=== PATIENT | male | born 1985 | race Caucasian/White ===

== ENCOUNTER 2018-10-26 17:48 | Inpatient (IN) | payer OTHER ==
[2018-10-26] MEDS: LORAZEPAM 2 MG INJ IV (19:31)
[2018-10-26 19:39] LABS: ADD MAN DIFF? NO
[2018-10-26 19:43] LABS: WHITE BLOOD COUNT 5.3 10^3/ul (4.8-10.8)
[2018-10-26 19:43] LABS: BASOPHILS % 0.6 % (0.0-2.0); EOSINOPHILS # 0.1 10^3/ul (0.0-0.5); EOSINOPHILS % 0.9 % (0.0-7.0); HEMATOCRIT 38.5 % (42.0-52.0); HEMOGLOBIN 12.9 g/dl (14.0-18.0); LYMPHOCYTES # 0.8 10^3/ul (0.8-2.9); LYMPHOCYTES % 15.4 % (15.0-51.0); MEAN CORPUSCULAR HEMOGLOBIN 32.4 pg (29.0-33.0); MEAN CORPUSCULAR HGB CONC 33.5 g/dl (32.0-37.0); MEAN CORPUSCULAR VOLUME 96.7 fl (82.0-101.0); MEAN PLATELET VOLUME 10.7 fl (7.4-10.4); MONOCYTE # 0.5 10^3/ul (0.3-0.9); MONOCYTES % 8.8 % (0.0-11.0); NEUTROPHILS % 73.9 % (39.0-77.0); PLATELET COUNT 148 10^3/UL (140-415); RED BLOOD COUNT 3.98 10^6/ul (4.70-6.10); RED CELL DISTRIBUTION WIDTH 12.1 % (11.5-14.5)
[2018-10-26] MEDS: SOD CHLORIDE 0.9% 1,000 ML IV (19:45)
[2018-10-26 20:05] LABS: ALANINE AMINOTRANSFERASE 107 IU/L (13-69); ALBUMIN 4.5 g/dl (3.3-4.9); ALBUMIN/GLOBULIN RATIO 1.55; ALKALINE PHOSPHATASE 69 IU/L (42-121); ANION GAP 14 (5-13); ASPARTATE AMINO TRANSFERASE 127 IU/L (15-46); BILIRUBIN,INDIRECT 1.6 mg/dl (0-1.1); BILIRUBIN,TOTAL 1.6 mg/dl (0.2-1.3); BLOOD UREA NITROGEN 10 mg/dl (7-20); CALCIUM 9.7 mg/dl (8.4-10.2); CARBON DIOXIDE 25 mmol/L (21-31); CHLORIDE 101 mmol/L (97-110); CREATININE 0.51 mg/dl (0.61-1.24); Estimated GFR > 60 mL/min (>60); GLUCOSE 94 mg/dl (70-220); LIPASE 405 U/L (23-300); SODIUM 140 mmol/L (135-144); TOTAL PROTEIN 7.4 g/dl (6.1-8.1)
[2018-10-26] MEDS: MULTIVITAMINS 10 ML, THIAMINE 100 MG, FOLIC ACID 1 MG, MAGNESIUM SULFATE 2 GM in SOD CH... IV (21:21)
[2018-10-27] MEDS ORDERED: NACL 0.9% 3 ML SYG IV
[2018-10-27] MEDS ORDERED: ONDANSETRON 4 MG INJ IV
[2018-10-27] MEDS: LORAZEPAM 2 MG INJ IV ×6 (00:46→19:46)
[2018-10-27] MEDS: SOD CHLORIDE 0.9% 1,000 ML IV ×3 (00:46→22:29)
[2018-10-27] MEDS: CHLORDIAZEPOXIDE 25 MG CAP PO ×4 (00:46→21:28)
[2018-10-27] MEDS: ACETAMINOPHEN 325 MG TAB PO ×2 (02:48→10:01)
[2018-10-27 08:04] LABS: ADD MAN DIFF? NO
[2018-10-27 08:11] LABS: BASOPHILS % 0.3 % (0.0-2.0); EOSINOPHILS # 0.1 10^3/ul (0.0-0.5); EOSINOPHILS % 1.4 % (0.0-7.0); HEMATOCRIT 39.5 % (42.0-52.0); HEMOGLOBIN 13.1 g/dl (14.0-18.0); LYMPHOCYTES # 1.2 10^3/ul (0.8-2.9); LYMPHOCYTES % 20.1 % (15.0-51.0); MEAN CORPUSCULAR HEMOGLOBIN 32.8 pg (29.0-33.0); MEAN CORPUSCULAR HGB CONC 33.2 g/dl (32.0-37.0); MEAN CORPUSCULAR VOLUME 98.8 fl (82.0-101.0); MEAN PLATELET VOLUME 11.3 fl (7.4-10.4); MONOCYTE # 0.6 10^3/ul (0.3-0.9); MONOCYTES % 9.6 % (0.0-11.0); NEUTROPHIL # 3.9 10^3/ul (1.6-7.5); NEUTROPHILS % 68.3 % (39.0-77.0); PLATELET COUNT 151 10^3/UL (140-415)
[2018-10-27 08:11] LABS: WHITE BLOOD COUNT 5.7 10^3/ul (4.8-10.8)
[2018-10-27 08:33] LABS: ALANINE AMINOTRANSFERASE 98 IU/L (13-69); ALBUMIN 4.4 g/dl (3.3-4.9); ALBUMIN/GLOBULIN RATIO 1.51; ALKALINE PHOSPHATASE 71 IU/L (42-121); ANION GAP 10 (5-13); ASPARTATE AMINO TRANSFERASE 115 IU/L (15-46); BILIRUBIN,INDIRECT 1.2 mg/dl (0-1.1); BILIRUBIN,TOTAL 1.2 mg/dl (0.2-1.3); BLOOD UREA NITROGEN 8 mg/dl (7-20); CALCIUM 9.3 mg/dl (8.4-10.2); CARBON DIOXIDE 26 mmol/L (21-31); CHLORIDE 104 mmol/L (97-110); CREATININE 0.52 mg/dl (0.61-1.24); Estimated GFR > 60 mL/min (>60); GLUCOSE 96 mg/dl (70-220); MAGNESIUM 2.2 mg/dl (1.7-2.5); POTASSIUM 3.9 mmol/L (3.5-5.1); SODIUM 140 mmol/L (135-144); TOTAL PROTEIN 7.3 g/dl (6.1-8.1)
[2018-10-27 08:37] LABS: ETHANOL < 10.0 mg/dl (0-0)
[2018-10-27] MEDS: MULTIVITAMINS THERAPEUTIC TAB PO (08:56)
[2018-10-27] MEDS: FOLIC ACID 1 MG TAB PO (08:56)
[2018-10-27] MEDS: THIAMINE 100 MG TAB PO (08:56)
[2018-10-27] MEDS: NIFEdipine (XL) 60 MG TAB PO (16:46)
[2018-10-27] MEDS: LORAZEPAM 1 MG TAB PO ×2 (16:46→21:28)
[2018-10-27] MEDS: NICOTINE (14 MG/24 HR) PATCH TRANSDERM (18:09)
[2018-10-27] MEDS: SERTRALINE 100 MG TAB PO (21:27)
[2018-10-27] MEDS: FAMOTIDINE 20 MG TAB PO (21:28)
[2018-10-28] MEDS: ACETAMINOPHEN 325 MG TAB PO (00:09)
[2018-10-28] MEDS: LORAZEPAM 2 MG INJ IV ×6 (00:59→10:38)
[2018-10-28] MEDS: DIPHENHYDRAMINE 50 MG INJ IV (03:04)
[2018-10-28] MEDS: HALOPERIDOL 5 MG INJ IM (03:04)
[2018-10-28] MEDS: SOD CHLORIDE 0.9% 1,000 ML IV ×4 (05:51→23:11)
[2018-10-28 06:28] LABS: ADD MAN DIFF? NO; HAAIG REFLEX REFLEX FILED
[2018-10-28 06:31] LABS: BASOPHILS % 0.4 % (0.0-2.0); EOSINOPHILS # 0.1 10^3/ul (0.0-0.5); EOSINOPHILS % 1.2 % (0.0-7.0); HEMATOCRIT 37.9 % (42.0-52.0); HEMOGLOBIN 12.7 g/dl (14.0-18.0); LYMPHOCYTES # 1.2 10^3/ul (0.8-2.9); LYMPHOCYTES % 24.3 % (15.0-51.0); MEAN CORPUSCULAR HEMOGLOBIN 32.4 pg (29.0-33.0); MEAN CORPUSCULAR HGB CONC 33.5 g/dl (32.0-37.0); MEAN CORPUSCULAR VOLUME 96.7 fl (82.0-101.0); MONOCYTE # 0.5 10^3/ul (0.3-0.9); MONOCYTES % 9.5 % (0.0-11.0); NEUTROPHIL # 3.2 10^3/ul (1.6-7.5); NEUTROPHILS % 64.4 % (39.0-77.0); PLATELET COUNT 160 10^3/UL (140-415); RED BLOOD COUNT 3.92 10^6/ul (4.70-6.10); RED CELL DISTRIBUTION WIDTH 11.9 % (11.5-14.5)
[2018-10-28] MEDS: LORAZEPAM 1 MG TAB PO (06:49)
[2018-10-28 06:50] LABS: PROTIME 12.2 Sec (11.9-14.9)
[2018-10-28 06:53] LABS: MAGNESIUM 1.9 mg/dl (1.7-2.5)
[2018-10-28 07:26] LABS: HEPATITIS B SURFACE ANTIGEN NEGATIVE (NEGATIVE)
[2018-10-28 07:46] LABS: HEPATITIS B CORE ANTIBODY NEGATIVE (NEGATIVE); HEPATITIS C VIRAL ANTIBODY NEGATIVE (NEGATIVE)
[2018-10-28 07:52] LABS: HEMOGLOBIN A1C 4.7 % (0-5.9)
[2018-10-28] MEDS: FAMOTIDINE 20 MG TAB PO (08:27)
[2018-10-28] MEDS: THIAMINE 100 MG TAB PO (08:27)
[2018-10-28] MEDS: MULTIVITAMINS THERAPEUTIC TAB PO (08:27)
[2018-10-28] MEDS: FOLIC ACID 1 MG TAB PO (08:27)
[2018-10-28] MEDS: NIFEdipine (XL) 60 MG TAB PO (08:28)
[2018-10-28] MEDS: NICOTINE (14 MG/24 HR) PATCH TRANSDERM (08:29)
[2018-10-28] MEDS: CHLORDIAZEPOXIDE 25 MG CAP PO ×3 (08:33→20:21)
[2018-10-28] MEDS: ENOXAPARIN 40 MG/0.4 ML SYG SC (08:37)
[2018-10-28] MEDS ORDERED: THIAMINE 100 MG TAB PO (09:00)
[2018-10-28 10:08] LABS: AMPHETAMINE/METHAMPHETAMINE Negative (NEGATIVE); CANNABINOIDS Negative (NEGATIVE); COCAINE Negative (NEGATIVE); OPIATES Negative (NEGATIVE)
[2018-10-28 10:17] LABS: BARBITURATES Positive (NEGATIVE)
[2018-10-28 10:18] LABS: BENZODIAZEPINES Positive (NEGATIVE)
[2018-10-28] MEDS: LORAZEPAM (MDV) 100 MG in DEXTROSE 5% 50 ML IV (11:04)
[2018-10-28] MEDS: CLONIDINE 0.2 MG/24 HR PATCH TRANSDERM (14:00)
[2018-10-28] MEDS ORDERED: HALOPERIDOL 5 MG INJ IM (14:00)
[2018-10-28] MEDS: HALOPERIDOL 5 MG INJ IV (14:00)
[2018-10-28] MEDS: DEXMEDETOMIDINE HCL 200 MCG in SOD CHLORIDE 0.9% 48 ML IV ×2 (14:53→19:33)
[2018-10-28] MEDS: SERTRALINE 100 MG TAB PO (20:21)
[2018-10-29] MEDS: DEXMEDETOMIDINE HCL 200 MCG in SOD CHLORIDE 0.9% 48 ML IV ×3 (02:53→18:51)
[2018-10-29 05:21] LABS: ADD MAN DIFF? NO
[2018-10-29 05:24] LABS: BASOPHILS % 0.7 % (0.0-2.0); EOSINOPHILS # 0.1 10^3/ul (0.0-0.5); EOSINOPHILS % 1.8 % (0.0-7.0); HEMATOCRIT 36.5 % (42.0-52.0); HEMOGLOBIN 12.1 g/dl (14.0-18.0); LYMPHOCYTES # 1.4 10^3/ul (0.8-2.9); MEAN CORPUSCULAR HEMOGLOBIN 32.8 pg (29.0-33.0); MEAN CORPUSCULAR HGB CONC 33.2 g/dl (32.0-37.0); MEAN CORPUSCULAR VOLUME 98.9 fl (82.0-101.0); MEAN PLATELET VOLUME 11.5 fl (7.4-10.4); MONOCYTE # 0.5 10^3/ul (0.3-0.9); MONOCYTES % 10.3 % (0.0-11.0); NEUTROPHIL # 2.4 10^3/ul (1.6-7.5); NEUTROPHILS % 55.5 % (39.0-77.0); PLATELET COUNT 151 10^3/UL (140-415); RED BLOOD COUNT 3.69 10^6/ul (4.70-6.10); RED CELL DISTRIBUTION WIDTH 12.1 % (11.5-14.5)
[2018-10-29 05:24] LABS: WHITE BLOOD COUNT 4.4 10^3/ul (4.8-10.8)
[2018-10-29 05:57] LABS: ALANINE AMINOTRANSFERASE 84 IU/L (13-69); ALBUMIN 3.9 g/dl (3.3-4.9); ALBUMIN/GLOBULIN RATIO 1.44; ALKALINE PHOSPHATASE 58 IU/L (42-121); ANION GAP 9 (5-13); ASPARTATE AMINO TRANSFERASE 82 IU/L (15-46); BILIRUBIN,INDIRECT 0.8 mg/dl (0-1.1); BILIRUBIN,TOTAL 0.8 mg/dl (0.2-1.3); BLOOD UREA NITROGEN 10 mg/dl (7-20); CALCIUM 9.2 mg/dl (8.4-10.2); CARBON DIOXIDE 21 mmol/L (21-31); CHLORIDE 111 mmol/L (97-110); CREATININE 0.55 mg/dl (0.61-1.24); Estimated GFR > 60 mL/min (>60); GLUCOSE 103 mg/dl (70-220); MAGNESIUM 1.9 mg/dl (1.7-2.5); SODIUM 141 mmol/L (135-144); TOTAL PROTEIN 6.6 g/dl (6.1-8.1)
[2018-10-29] MEDS: FAMOTIDINE 20 MG INJ IV (08:08)
[2018-10-29] MEDS: CHLORDIAZEPOXIDE 25 MG CAP PO ×3 (08:08→20:36)
[2018-10-29] MEDS: NIFEdipine (XL) 60 MG TAB PO (08:08)
[2018-10-29] MEDS: THIAMINE 100 MG TAB PO (08:09)
[2018-10-29] MEDS: MULTIVITAMINS THERAPEUTIC TAB PO (08:09)
[2018-10-29] MEDS: ENOXAPARIN 40 MG/0.4 ML SYG SC (08:16)
[2018-10-29] MEDS: SOD CHLORIDE 0.9% 1,000 ML IV ×2 (08:27→18:08)
[2018-10-29] MEDS: NICOTINE (14 MG/24 HR) PATCH TRANSDERM (08:28)
[2018-10-29] MEDS: SERTRALINE 100 MG TAB PO (20:35)
[2018-10-30] MEDS: DEXMEDETOMIDINE HCL 200 MCG in SOD CHLORIDE 0.9% 48 ML IV (01:28)
[2018-10-30] MEDS: SOD CHLORIDE 0.9% 1,000 ML IV ×2 (03:17→13:41)
[2018-10-30] MEDS: LORAZEPAM 1 MG TAB PO ×3 (05:16→21:15)
[2018-10-30 06:37] LABS: ADD MAN DIFF? NO
[2018-10-30 06:44] LABS: BASOPHILS % 0.4 % (0.0-2.0); EOSINOPHILS # 0.1 10^3/ul (0.0-0.5); EOSINOPHILS % 1.2 % (0.0-7.0); HEMATOCRIT 37.6 % (42.0-52.0); HEMOGLOBIN 12.6 g/dl (14.0-18.0); LYMPHOCYTES # 1.4 10^3/ul (0.8-2.9); LYMPHOCYTES % 27.8 % (15.0-51.0); MEAN CORPUSCULAR HEMOGLOBIN 32.6 pg (29.0-33.0); MEAN CORPUSCULAR HGB CONC 33.5 g/dl (32.0-37.0); MEAN CORPUSCULAR VOLUME 97.2 fl (82.0-101.0); MEAN PLATELET VOLUME 10.9 fl (7.4-10.4); MONOCYTE # 0.5 10^3/ul (0.3-0.9); MONOCYTES % 10.1 % (0.0-11.0); NEUTROPHIL # 3.1 10^3/ul (1.6-7.5); NEUTROPHILS % 60.1 % (39.0-77.0); PLATELET COUNT 160 10^3/UL (140-415); RED BLOOD COUNT 3.87 10^6/ul (4.70-6.10); RED CELL DISTRIBUTION WIDTH 11.8 % (11.5-14.5)
[2018-10-30 06:44] LABS: WHITE BLOOD COUNT 5.1 10^3/ul (4.8-10.8)
[2018-10-30 07:11] LABS: AMMONIA 13 umol/l (9-30)
[2018-10-30 07:30] LABS: ALANINE AMINOTRANSFERASE 78 IU/L (13-69); ALBUMIN 3.9 g/dl (3.3-4.9); ALKALINE PHOSPHATASE 61 IU/L (42-121); ANION GAP 12 (5-13); ASPARTATE AMINO TRANSFERASE 67 IU/L (15-46); BILIRUBIN,INDIRECT 0.8 mg/dl (0-1.1); BILIRUBIN,TOTAL 0.8 mg/dl (0.2-1.3); BLOOD UREA NITROGEN 7 mg/dl (7-20); CALCIUM 9.2 mg/dl (8.4-10.2); CARBON DIOXIDE 22 mmol/L (21-31); CHLORIDE 109 mmol/L (97-110); CREATININE 0.55 mg/dl (0.61-1.24); Estimated GFR > 60 mL/min (>60); GLUCOSE 95 mg/dl (70-220); MAGNESIUM 1.8 mg/dl (1.7-2.5); POTASSIUM 3.5 mmol/L (3.5-5.1); SODIUM 143 mmol/L (135-144); TOTAL PROTEIN 6.5 g/dl (6.1-8.1)
[2018-10-30] MEDS: MULTIVITAMINS THERAPEUTIC TAB PO (08:24)
[2018-10-30] MEDS: NIFEdipine (XL) 60 MG TAB PO (08:24)
[2018-10-30] MEDS: CHLORDIAZEPOXIDE 25 MG CAP PO ×3 (08:24→21:15)
[2018-10-30] MEDS: FAMOTIDINE 20 MG TAB PO (08:24)
[2018-10-30] MEDS: THIAMINE 100 MG TAB PO (08:24)
[2018-10-30] MEDS: NICOTINE (14 MG/24 HR) PATCH TRANSDERM (08:25)
[2018-10-30] MEDS: ENOXAPARIN 40 MG/0.4 ML SYG SC (08:32)
[2018-10-30] MEDS: ACETAMINOPHEN 325 MG TAB PO ×2 (12:36→17:52)
[2018-10-30] MEDS: LORAZEPAM 4 MG/ML VIAL IV (15:07)
[2018-10-30] MEDS ORDERED: ONDANSETRON 4 MG INJ IV (16:30)
[2018-10-30] MEDS: POTASSIUM CHLORIDE 20 MEQ POWDER FOR ORAL SOLN PO (17:21)
[2018-10-30] MEDS: SERTRALINE 100 MG TAB PO (21:15)
[2018-10-30] MEDS: MAGNESIUM OXIDE 400 MG TAB PO (21:15)
[2018-10-31] MEDS: ACETAMINOPHEN 325 MG TAB PO (00:17)
[2018-10-31] MEDS: LORAZEPAM 4 MG/ML VIAL IV ×5 (00:17→23:27)
[2018-10-31] MEDS: SOD CHLORIDE 0.9% 1,000 ML IV ×4 (00:19→21:41)
[2018-10-31] MEDS: LORAZEPAM 1 MG TAB PO ×2 (06:00→13:10)
[2018-10-31 06:10] LABS: ADD MAN DIFF? NO
[2018-10-31 06:27] LABS: WHITE BLOOD COUNT 5.5 10^3/ul (4.8-10.8)
[2018-10-31 06:27] LABS: BASOPHILS % 0.4 % (0.0-2.0); EOSINOPHILS # 0.1 10^3/ul (0.0-0.5); EOSINOPHILS % 1.1 % (0.0-7.0); HEMATOCRIT 38.6 % (42.0-52.0); HEMOGLOBIN 12.9 g/dl (14.0-18.0); LYMPHOCYTES # 1.5 10^3/ul (0.8-2.9); MEAN CORPUSCULAR HEMOGLOBIN 32.5 pg (29.0-33.0); MEAN CORPUSCULAR HGB CONC 33.4 g/dl (32.0-37.0); MEAN CORPUSCULAR VOLUME 97.2 fl (82.0-101.0); MEAN PLATELET VOLUME 11.2 fl (7.4-10.4); MONOCYTE # 0.7 10^3/ul (0.3-0.9); NEUTROPHIL # 3.2 10^3/ul (1.6-7.5); NEUTROPHILS % 59.1 % (39.0-77.0); PLATELET COUNT 195 10^3/UL (140-415); RED BLOOD COUNT 3.97 10^6/ul (4.70-6.10)
[2018-10-31 06:51] LABS: ALANINE AMINOTRANSFERASE 74 IU/L (13-69); ALBUMIN 4.3 g/dl (3.3-4.9); ALBUMIN/GLOBULIN RATIO 1.65; ALKALINE PHOSPHATASE 62 IU/L (42-121); ANION GAP 13 (5-13); ASPARTATE AMINO TRANSFERASE 49 IU/L (15-46); BILIRUBIN,INDIRECT 0.4 mg/dl (0-1.1); BILIRUBIN,TOTAL 0.4 mg/dl (0.2-1.3); BLOOD UREA NITROGEN 8 mg/dl (7-20); CALCIUM 9.5 mg/dl (8.4-10.2); CARBON DIOXIDE 26 mmol/L (21-31); CHLORIDE 106 mmol/L (97-110); CREATININE 0.54 mg/dl (0.61-1.24); Estimated GFR > 60 mL/min (>60); GLUCOSE 97 mg/dl (70-220); MAGNESIUM 2.1 mg/dl (1.7-2.5); POTASSIUM 3.7 mmol/L (3.5-5.1); SODIUM 145 mmol/L (135-144); TOTAL PROTEIN 6.9 g/dl (6.1-8.1)
[2018-10-31] MEDS: CHLORDIAZEPOXIDE 25 MG CAP PO ×3 (07:31→20:02)
[2018-10-31] MEDS: MAGNESIUM OXIDE 400 MG TAB PO ×2 (08:29→20:02)
[2018-10-31] MEDS: THIAMINE 100 MG TAB PO (08:30)
[2018-10-31] MEDS: NIFEdipine (XL) 60 MG TAB PO (08:31)
[2018-10-31] MEDS: MULTIVITAMINS THERAPEUTIC TAB PO (08:31)
[2018-10-31] MEDS: FAMOTIDINE 20 MG TAB PO (08:32)
[2018-10-31] MEDS: NICOTINE (14 MG/24 HR) PATCH TRANSDERM (08:32)
[2018-10-31] MEDS: POTASSIUM CHLORIDE 20 MEQ POWDER FOR ORAL SOLN PO (08:32)
[2018-10-31] MEDS: ENOXAPARIN 40 MG/0.4 ML SYG SC (08:43)
[2018-10-31] MEDS: HALOPERIDOL 5 MG INJ IM (11:24)
[2018-10-31] MEDS: SERTRALINE 100 MG TAB PO (20:02)
[2018-11-01] MEDS: LORAZEPAM 4 MG/ML VIAL IV (04:24)
[2018-11-01 06:05] LABS: ANION GAP 10 (5-13); BLOOD UREA NITROGEN 6 mg/dl (7-20); CALCIUM 9.1 mg/dl (8.4-10.2); CARBON DIOXIDE 23 mmol/L (21-31); CHLORIDE 109 mmol/L (97-110); CREATININE 0.47 mg/dl (0.61-1.24); Estimated GFR > 60 mL/min (>60); GLUCOSE 108 mg/dl (70-220); POTASSIUM 3.6 mmol/L (3.5-5.1); SODIUM 142 mmol/L (135-144)
[2018-11-01] MEDS: SOD CHLORIDE 0.9% 1,000 ML IV ×2 (07:01→20:07)
[2018-11-01 07:57] LABS: ADD MAN DIFF? NO
[2018-11-01 08:12] LABS: WHITE BLOOD COUNT 5.2 10^3/ul (4.8-10.8)
[2018-11-01 08:12] LABS: BASOPHILS % 0.4 % (0.0-2.0); EOSINOPHILS % 0.8 % (0.0-7.0); HEMATOCRIT 37.4 % (42.0-52.0); HEMOGLOBIN 12.5 g/dl (14.0-18.0); LYMPHOCYTES # 1.2 10^3/ul (0.8-2.9); LYMPHOCYTES % 23.4 % (15.0-51.0); MEAN CORPUSCULAR HEMOGLOBIN 32.8 pg (29.0-33.0); MEAN CORPUSCULAR HGB CONC 33.4 g/dl (32.0-37.0); MEAN CORPUSCULAR VOLUME 98.2 fl (82.0-101.0); MEAN PLATELET VOLUME 11.2 fl (7.4-10.4); MONOCYTE # 0.7 10^3/ul (0.3-0.9); MONOCYTES % 12.5 % (0.0-11.0); NEUTROPHIL # 3.2 10^3/ul (1.6-7.5); NEUTROPHILS % 62.5 % (39.0-77.0); PLATELET COUNT 194 10^3/UL (140-415); RED BLOOD COUNT 3.81 10^6/ul (4.70-6.10); RED CELL DISTRIBUTION WIDTH 12.1 % (11.5-14.5)
[2018-11-01] MEDS: CHLORDIAZEPOXIDE 25 MG CAP PO (08:22)
[2018-11-01] MEDS: NIFEdipine (XL) 60 MG TAB PO (08:23)
[2018-11-01] MEDS: POTASSIUM CHLORIDE 20 MEQ POWDER FOR ORAL SOLN PO (08:23)
[2018-11-01] MEDS: MAGNESIUM OXIDE 400 MG TAB PO ×2 (08:23→20:08)
[2018-11-01] MEDS: NICOTINE (14 MG/24 HR) PATCH TRANSDERM (08:23)
[2018-11-01] MEDS: THIAMINE 100 MG TAB PO (08:24)
[2018-11-01] MEDS: FAMOTIDINE 20 MG TAB PO (08:24)
[2018-11-01] MEDS: MULTIVITAMINS THERAPEUTIC TAB PO (08:24)
[2018-11-01] MEDS: ENOXAPARIN 40 MG/0.4 ML SYG SC (08:25)
[2018-11-01] MEDS: CHLORDIAZEPOXIDE 5 MG CAP PO ×2 (12:41→20:08)
[2018-11-01] MEDS: HALOPERIDOL 5 MG INJ IM (14:11)
[2018-11-01] MEDS: SERTRALINE 100 MG TAB PO (20:08)
[2018-11-02] MEDS: LORAZEPAM 4 MG/ML VIAL IV (01:45)
[2018-11-02] MEDS: SOD CHLORIDE 0.9% 1,000 ML IV (05:40)
[2018-11-02 06:54] LABS: ADD MAN DIFF? NO
[2018-11-02 06:57] LABS: BASOPHILS % 0.7 % (0.0-2.0); EOSINOPHILS # 0.1 10^3/ul (0.0-0.5); EOSINOPHILS % 1.3 % (0.0-7.0); HEMATOCRIT 40.2 % (42.0-52.0); HEMOGLOBIN 13.1 g/dl (14.0-18.0); LYMPHOCYTES # 1.4 10^3/ul (0.8-2.9); LYMPHOCYTES % 31.9 % (15.0-51.0); MEAN CORPUSCULAR HEMOGLOBIN 32.2 pg (29.0-33.0); MEAN CORPUSCULAR HGB CONC 32.6 g/dl (32.0-37.0); MEAN CORPUSCULAR VOLUME 98.8 fl (82.0-101.0); MEAN PLATELET VOLUME 10.9 fl (7.4-10.4); MONOCYTE # 0.6 10^3/ul (0.3-0.9); MONOCYTES % 12.9 % (0.0-11.0); NEUTROPHIL # 2.4 10^3/ul (1.6-7.5); NEUTROPHILS % 52.8 % (39.0-77.0); PLATELET COUNT 215 10^3/UL (140-415); RED BLOOD COUNT 4.07 10^6/ul (4.70-6.10); RED CELL DISTRIBUTION WIDTH 12.3 % (11.5-14.5)
[2018-11-02 06:57] LABS: WHITE BLOOD COUNT 4.5 10^3/ul (4.8-10.8)
[2018-11-02 07:14] LABS: ANION GAP 10 (5-13); BLOOD UREA NITROGEN 8 mg/dl (7-20); CALCIUM 9.2 mg/dl (8.4-10.2); CARBON DIOXIDE 26 mmol/L (21-31); CHLORIDE 106 mmol/L (97-110); CREATININE 0.55 mg/dl (0.61-1.24); Estimated GFR > 60 mL/min (>60); GLUCOSE 103 mg/dl (70-220); SODIUM 142 mmol/L (135-144)
[2018-11-02 07:25] LABS: PHOSPHORUS 4.7 mg/dl (2.5-4.9)
[2018-11-02 07:28] LABS: MAGNESIUM 2.2 mg/dl (1.7-2.5)
[2018-11-02] MEDS: [UNRECOGNIZED DRUG - OTHER] SC (09:00)
[2018-11-02] MEDS: POTASSIUM CHLORIDE 20 MEQ POWDER FOR ORAL SOLN PO (09:47)
[2018-11-02] MEDS: CHLORDIAZEPOXIDE 5 MG CAP PO (09:47)
[2018-11-02] MEDS: FAMOTIDINE 20 MG TAB PO (09:49)
[2018-11-02] MEDS: NIFEdipine (XL) 60 MG TAB PO (09:49)
[2018-11-02] MEDS: THIAMINE 100 MG TAB PO (09:49)
[2018-11-02] MEDS: ENOXAPARIN 40 MG/0.4 ML SYG SC (09:50)
[2018-11-02] MEDS: MULTIVITAMINS THERAPEUTIC TAB PO (09:50)
[2018-11-02] MEDS: MAGNESIUM OXIDE 400 MG TAB PO (10:52)
[2018-11-02] MEDS: NICOTINE (14 MG/24 HR) PATCH TRANSDERM (10:53)
== END 2018-11-02 10:54 | disposition left against medical advice (07) | DRG 894 ==
LOC: 6WM 10-30 15:03 → 5EC 11-02 00:30 → E/R 17:48 → ICU 10-28 09:21 → TEL 10-27 18:47
DX: F10.231 Alcohol dependence with withdrawal delirium (principal); F17.203 Nicotine dependence unspecified, with withdrawal; I10 Essential (primary) hypertension; D64.9 Anemia, unspecified; D69.6 Thrombocytopenia, unspecified; G35 Multiple sclerosis; F32.9 Major depressive disorder, single episode, unspecified
CPT/HCPCS: 36415; 76700; 80048; 80053; 80307; 82140; 83036; 83690; 83735; 84100; 84443; 85025; 85610; 86704; 86709; 86803; 87081; 87340; 96374; 99285-25